=== PATIENT | female | born 1965 | race Caucasian/White ===

== ENCOUNTER 2017-11-19 19:52 | Emergency (ER) | payer MEDICAID ==
[~2017-11-19] VITALS: Ht 154.9 cm; Wt 85.3 kg
[2017-11-19 20:00] VITALS: Ht 154.9 cm; Wt 85.3 kg
[2017-11-19 20:38] LABS: BASOPHIL % 0.5 % (0-2); PLATELET COUNT 328 x10^3mcL (130-400)
[2017-11-19 20:39] LABS: RED CELL DISTRIBUTION WIDTH 15.1 % (11.5-14.5)
[2017-11-19 20:47] LABS: CALCIUM 9.9 mg/dL (8.5-10.1); CARBON DIOXIDE 19.8 mmol/L (21-32); CREATININE SERUM 1.2 mg/dL (0.6-1.0); POTASSIUM SERUM 3.6 mmol/L (3.5-5.1)
[2017-11-19 20:51] LABS: ALBUMIN 4.8 g/dL (3.4-5.0); BILIRUBIN TOTAL 0.46 mg/dL (0.20-1.00); MAGNESIUM 1.7 mg/dL (1.8-2.4)
[2017-11-19 20:56] LABS: TOTAL PROTEIN, SERUM 8.8 g/dL (6.4-8.2)
[2017-11-19 22:51] LABS: microscopic required? NO
[2017-11-19 23:40] LABS: UA SPECIFIC GRAVITY <=1.005 (1.005-1.035); urine erythrocyte NEGATIVE (NEGATIVE)
[2017-11-20 00:17] VITALS: BP 116/84
== END 2017-11-20 00:17 | disposition home or self-care (01) ==
LOC: ED 19:52
PROVIDERS: Emergency Medicine
DX: A08.4 Viral intestinal infection, unspecified (principal); Z90.710 Acquired absence of both cervix and uterus; I67.1 Cerebral aneurysm, nonruptured; Z98.890 Other specified postprocedural states
CPT/HCPCS: J1885; J2060; J2405; J2765; J3475; J7030

== ENCOUNTER 2017-12-21 16:17 | Emergency (ER) | payer SELFPAY ==
[~2017-12-21] VITALS: Ht 157.5 cm; Wt 88.9 kg
[2017-12-21 16:28] VITALS: Ht 157.5 cm; Wt 88.9 kg
[2017-12-21 21:14] VITALS: BP 117/70
== END 2017-12-21 21:14 | disposition home or self-care (01) ==
LOC: ED 16:17
DX: R51 Headache (principal); I10 Essential (primary) hypertension; E03.9 Hypothyroidism, unspecified; I67.1 Cerebral aneurysm, nonruptured; Z88.0 Allergy status to penicillin; Z88.1 Allergy status to other antibiotic agents; Z88.8 Allergy status to other drugs, medicaments and biological substances; Z90.710 Acquired absence of both cervix and uterus; Z98.890 Other specified postprocedural states
CPT/HCPCS: J2060; J2270; J7030

== ENCOUNTER 2018-11-09 19:22 | Emergency (ER) | payer OTHER | END 2018-11-09 20:56 | disposition left against medical advice (07) | LOC: ED 19:22 | DX: Z53.21 Procedure and treatment not carried out due to patient leaving prior to being seen by health care provider (principal) ==

== ENCOUNTER 2019-01-20 16:50 | Emergency (ER) | payer OTHER ==
[~2019-01-20] VITALS: Ht 157.5 cm; Wt 83.9 kg
[2019-01-20 16:54] VITALS: BP 149/89; Ht 157.5 cm; Wt 83.9 kg
== END 2019-01-20 20:03 | disposition left against medical advice (07) ==
LOC: ED 16:50
DX: Z53.21 Procedure and treatment not carried out due to patient leaving prior to being seen by health care provider (principal)

== ENCOUNTER 2019-06-25 03:45 | Emergency (ER) | payer OTHER, SELFPAY ==
[~2019-06-25] VITALS: Ht 157.5 cm; Wt 90.7 kg
[2019-06-25 03:54] VITALS: Ht 157.5 cm; Wt 90.7 kg
[2019-06-25 05:04] LABS: BASOPHIL % 0.3 % (0-2); PLATELET COUNT 236 x10^3mcL (130-400); RED CELL DISTRIBUTION WIDTH 14.6 % (11.5-14.5)
[2019-06-25 05:16] LABS: CALCIUM 8.2 mg/dL (8.5-10.1); CARBON DIOXIDE 28.1 mmol/L (21-32); CHLORIDE SERUM 106 mmol/L (98-107); CREATININE SERUM 0.8 mg/dL (0.6-1.0); GFR1 > 60 mL/min; GLUCOSE SERUM 105 mg/dL (74-106); POTASSIUM SERUM 3.8 mmol/L (3.5-5.1); SODIUM SERUM 141 mmol/L (136-145)
[2019-06-25 05:21] LABS: ALKALINE PHOSPHATASE 106 U/L (46-116); ALT/SGPT 43 U/L (14-59); AST/SGOT 24 U/L (15-37); BILIRUBIN TOTAL 0.16 mg/dL (0.20-1.00); TOTAL PROTEIN, SERUM 6.5 g/dL (6.4-8.2)
[2019-06-25 05:23] LABS: ALBUMIN 3.3 g/dL (3.4-5.0)
[2019-06-25 07:55] VITALS: BP 114/75
== END 2019-06-25 07:55 | disposition home or self-care (01) ==
LOC: ED 03:45
PROVIDERS: Emergency Medicine
DX: R53.1 Weakness (principal)
CPT/HCPCS: J7030; Q0092

== ENCOUNTER 2019-11-28 16:25 | Emergency (ER) | payer OTHER, SELFPAY ==
[2019-11-28 18:47] LABS: microscopic required? NO
[2019-11-28 19:26] VITALS: BP 133/83
[2019-11-28 23:09] LABS: CALCIUM 9.8 mg/dL (8.5-10.1); CARBON DIOXIDE 27.1 mmol/L (21-32); CREATININE SERUM 1.5 mg/dL (0.6-1.0); POTASSIUM SERUM 3.5 mmol/L (3.5-5.1)
[2019-11-28 23:14] LABS: ALBUMIN 4.1 g/dL (3.4-5.0); BILIRUBIN TOTAL 0.4 mg/dL (0.20-1.00); C REACTIVE PROTEIN 0.2 mg/dL (<=0.9)
[2019-11-28 23:16] LABS: TOTAL PROTEIN, SERUM 8.5 g/dL (6.4-8.2)
[2019-12-04 20:32] LABS: PLATELET COUNT 331 x10^3mcL (130-400); RED CELL DISTRIBUTION WIDTH 13.9 % (11.5-14.5)
[2019-12-04 20:33] LABS: BASOPHIL % 0.6 % (0-2)
== END 2019-11-28 20:15 | disposition home or self-care (01) ==
LOC: ED 16:25
PROVIDERS: Emergency Medicine
DX: R06.02 Shortness of breath (principal); R11.0 Nausea; M54.9 Dorsalgia, unspecified; M79.10 Myalgia, unspecified site; Z20.828 Contact with and (suspected) exposure to other viral communicable diseases; Z98.890 Other specified postprocedural states
CPT/HCPCS: 83880; 85378; 87804; J2060; J2270; J2405; Q0092; U0003-CS

== ENCOUNTER 2020-01-25 16:50 | Emergency (ER) | payer OTHER, SELFPAY ==
[~2020-01-25] VITALS: Ht 157.5 cm; Wt 89.8 kg
[2020-01-25 16:54] VITALS: BP 157/89; Ht 157.5 cm; Wt 89.8 kg
== END 2020-01-25 19:05 | disposition left against medical advice (07) ==
LOC: ED 16:50
DX: Z53.21 Procedure and treatment not carried out due to patient leaving prior to being seen by health care provider (principal)